=== PATIENT | female | born 1980 | race Caucasian/White ===

== ENCOUNTER 2022-07-12 17:15 | Inpatient (IN) | payer MEDICAID, OTHER ==
[~2022-07-12] VITALS: Ht 160 cm; Wt 79.8 kg
[2022-07-12] MEDS ORDERED: SODIUM CHLORIDE 0.9% 1,000 ML IV ONE (17:30)
[2022-07-12] MEDS ORDERED: TOPI25 PO (17:34)
[2022-07-12 18:08] LABS: BASOPHILS % (AUTO) 0.8 % (0.0-2.0); EOSINOPHILS % (AUTO) 0.8 % (1.0-6.0); HEMOGLOBIN 12.2 g/dL (12.0-16.0); LYMPHOCYTES # (AUTO) 1.9 K/uL (1.0-4.8); MEAN CORPUSCULAR HEMOGLOBIN 26.3 pg (26.0-34.0); MEAN CORPUSCULAR HGB CONC 32.1 G/dL (31.0-37.0); MEAN CORPUSCULAR VOLUME 82 fL (80-100); MONOCYTES # (AUTO) 0.6 K/uL (0.1-1.0); MONOCYTES % (AUTO) 6.7 % (2.0-9.0); NEUTROPHILS # (AUTO) 5.8 K/uL (1.8-7.7); NEUTROPHILS % (AUTO) 68.7 % (40.0-70.0); PLATELET COUNT (AUTO) 384 K/uL (150-450); RED BLOOD CELL COUNT(AUTO) 4.64 MIL/uL (4.00-5.20); RED CELL DISTRIBUTION WIDTH 16.6 % (11.5-14.5)
[2022-07-12 18:17] LABS: ANION GAP 10 mmol/L (8-16); CALCIUM, TOTAL 9.1 mg/dL (8.8-10.5); CARBON DIOXIDE 26 mmol/L (22-29); CHLORIDE 105 mmol/L (98-107); CREATININE 1.12 mg/dL (0.60-1.30); GLOMERULAR FILTR. RATE CALC 53 mL/min (>60); GLUCOSE,RANDOM 95 mg/dL (70-110); POTASSIUM 3.5 mmol/L (3.5-5.1); SODIUM SERUM 141 mmol/L (136-145); UREA NITROGEN, BLOOD 8 mg/dL (7-18)
[2022-07-12 18:23] LABS: ALANINE AMINOTRANSFERASE 19 U/L (12-78); ALKALINE PHOSPHATASE 85 U/L (46-116); ASPARTATE AMINOTRANSFERASE 12 U/L (15-37); BILIRUBIN,TOTAL 0.3 mg/dL (0.1-1.0); TOTAL PROTEIN, SERUM 7.7 g/dL (6.4-8.2)
[2022-07-12 18:24] LABS: ACETAMINOPHEN < 2 mcg/mL (10-30)
[2022-07-12 18:28] LABS: SALICYLATE 4.2 mg/dL (2.8-20.0)
[2022-07-12] MEDS: AmLODIPine BESYLATE 5 MG TABLET PO ONE ×2 (20:37→20:42)
[2022-07-12 23:08] LABS: COVID AG,FIA SOURCE NASAL SWAB
[2022-07-13] MEDS ORDERED: LORazepam 2 MG TABLET PO PRN
[2022-07-13] MEDS ORDERED: HALOPERIDOL 5 MG TABLET PO PRN
[2022-07-13] MEDS ORDERED: ZOLPIDEM TARTRATE 10 MG TABLET PO PRN
[2022-07-13 01:58] VITALS: BP 140/85
[2022-07-13 08:00] VITALS: BP 101/67
[2022-07-13] MEDS ORDERED: IBUPROFEN 600 MG TABLET PO PRN (21:00)
[2022-07-13] MEDS ORDERED: DOCUSATE SODIUM 100 MG CAPSULE PO PRN (21:00)
[2022-07-13] MEDS ORDERED: BENZOCAINE/MENTHOL LOZENGE PO PRN (21:00)
[2022-07-13] MEDS ORDERED: CloNIDine HCL 0.1 MG TABLET PO PRN (21:00)
[2022-07-13] MEDS ORDERED: BACITRACIN 28 GM OINTMENT TP PRN (21:00)
[2022-07-13] MEDS ORDERED: LOPERAMIDE HCL 2 MG CAPSULE PO PRN (21:00)
[2022-07-13] MEDS ORDERED: MAGNESIUM HYDROXIDE SUSPENSION 30 ML UDCUP PO PRN (21:00)
[2022-07-13] MEDS ORDERED: ONDANSETRON HCL 4 MG TABLET PO PRN (21:00)
[2022-07-13] MEDS ORDERED: ALBUTEROL SULFATE HFA 90 MCG/PUFF 8 GM INHALER IH PRN (21:00)
[2022-07-13] MEDS ORDERED: OMEPRAZOLE 20 MG CAPSULE PO PRN (21:00)
[2022-07-13] MEDS ORDERED: MAG HYDROX/AL HYDROX/SIMETH ES 30 ML SUSPENSION UDCUP PO PRN (21:00)
[2022-07-13] MEDS ORDERED: PETROLATUM,WHITE 28 GM JELLY TP PRN (21:00)
[2022-07-14 04:54] VITALS: BP 108/64
[2022-07-14] MEDS: ACETAMINOPHEN 325 MG TABLET PO PRN (04:54)
[2022-07-14 08:00] VITALS: BP 127/58
[2022-07-14] MEDS: TOPIRAMATE 25 MG TABLET PO SCH (08:54)
[2022-07-14 16:00] VITALS: BP 140/94
[2022-07-15] MEDS: TOPIRAMATE 25 MG TABLET PO SCH (08:44)
[2022-07-15] MEDS ORDERED: CITALOPRAM HYDROBROMIDE 20 MG TABLET PO SCH (09:00)
[2022-07-15 09:45] VITALS: BP 114/68
[2022-07-15 14:19] VITALS: BP 128/70
[2022-07-15] MEDS: ACETAMINOPHEN 325 MG TABLET PO PRN (14:24)
[2022-07-15] MEDS ORDERED: CITA-144 PO (15:34)
[2022-07-15 16:00] VITALS: BP 136/69
[2022-07-15] MEDS ORDERED: TOPI25 PO (16:27)
== END 2022-07-15 17:30 | disposition home or self-care (01) | DRG 754 ==
LOC: EMS 17:17 → 3EI 07-13 00:33
PROVIDERS: ADMIT Psychiatry & Neurology Psychiatry; ATTEND Psychiatry & Neurology Psychiatry
DX: F32.9 Major depressive disorder, single episode, unspecified (principal); F22 Delusional disorders; G40.909 Epilepsy, unspecified, not intractable, without status epilepticus; F41.9 Anxiety disorder, unspecified; I10 Essential (primary) hypertension; K59.00 Constipation, unspecified; G47.00 Insomnia, unspecified; T50.902A Poisoning by unspecified drugs, medicaments and biological substances, intentional self-harm, initial encounter; Z20.822 Contact with and (suspected) exposure to COVID-19; Z59.00 Homelessness unspecified; Y92.89 Other specified places as the place of occurrence of the external cause; Z88.8 Allergy status to other drugs, medicaments and biological substances
CPT/HCPCS: 80053; 83735; 84703; 85025; 93005; G0480; G0481